=== PATIENT | female | born 1995 | race Hispanic/Latino ===

== ENCOUNTER 2017-05-19 16:28 | Emergency (ER) | payer OTHER ==
[2017-05-19 16:35] VITALS: BP 148/97; TEMP 98.2; O2SAT 98
--- NOTE | 2017-05-19 16:44 | ED PDOC ---
HPI: Allergic Reaction Time Seen by Provider: 05/19/17 16:42 Chief Complaint (Nursing): Allergic Reaction Chief Complaint (Provider): numbness in fingers History Per: Patient (21 y/o female brought to ED for evaluation of numbness noted in fingertips and by mouth. States she was unsure if symptoms were related to panic attack or allergic reaction to pumpkin. Has no notice of rash/ shortness of breath/itching. Deneis any chest pain /abdominal pain/fevers/ chills.) Past Medical History Reviewed: Historical Data, Nursing Documentation, Vital Signs Vital Signs: Last Vital Signs Temp 98.2 F 05/19/17 16:31 Pulse Resp 18 05/19/17 16:31 BP 148/97 H 05/19/17 16:31 Pulse Ox 98 05/19/17 16:31 - Family History Family History: States: No Known Family Hx - Allergies Allergies/Adverse Reactions: Allergies Allergy/AdvReac Type Severity Reaction Status Date / Time No Known Allergies Allergy Verified 05/19/17 16:30 Review of Systems ROS Statement: Except As Marked, All Systems Reviewed And Found Negative Physical Exam - Reviewed Nursing Documentation Reviewed: Yes Vital Signs Reviewed: Yes - Physical Exam Appears: Positive for: Well, Non-toxic, No Acute Distress Head Exam: Positive for: ATRAUMATIC, NORMAL INSPECTION, NORMOCEPHALIC Skin: Positive for: Normal Color, Warm, DRY Eye Exam: Positive for: EOMI, Normal appearance, PERRL ENT: Positive for: Normal ENT Inspection Neck: Positive for: Normal, Painless ROM Cardiovascular/Chest: Positive for: Regular Rate, Rhythm Respiratory: Positive for: CNT, Normal Breath Sounds Gastrointestinal/Abdominal: Positive for: Normal Exam, Bowel Sounds, Soft Back: Positive for: Normal Inspection Extremity: Positive for: Normal ROM Neurologic/Psych: Positive for: Alert, Oriented - Laboratory Results Urine POC: Negative - ECG ECG Rhythm: Positive for: Sinus Rhythm (nsr 77bpm no ectopy; no acute changes) O2 Sat by Pulse Oximetry: 98 - Progress ED Course And Treament: Accucheck 86 symptoms improved in ED Disposition - Clinical Impression Clinical Impression: Hyperventilation syndrome - Patient ED Disposition Is Patient to be Admitted: No - Disposition Disposition: Routine/Home Disposition Time: 18:45 Condition: FAIR Instructions: Hyperventilation (ED) Forms: [employer] ([place]ian)
[2017-05-19 18:57] VITALS: PULSE 78; RESP 16
--- NOTE | 2017-05-21 18:25 | CARD ---
APPROVED REPORT EKG Measurement Heart [id number] <Conclusion> Normal sinus rhythm Possible Left atrial enlargement Borderline ECG
== END 2017-05-19 18:57 | disposition home or self-care (01) ==
LOC: H.ER 16:28
DX: R06.4 Hyperventilation (principal)